=== PATIENT | male | born 1955 | race African-American/Black ===

== ENCOUNTER 2022-11-13 14:23 | Inpatient (IN) | payer OTHER ==
[2022-11-13 15:12] VITALS: BMI 22.4
[2022-11-13] MEDS ORDERED: POLYETHYLENE GLYCOL (HEALTHYLAX) 3350 17 GM PACKET PO PRN (17:31)
[2022-11-13] MEDS ORDERED: COLLOIDAL OATMEAL 1 BAR EACH TP PRN (17:31)
[2022-11-13] MEDS ORDERED: BENZONATATE 200 MG CAPSULE PO PRN (17:31)
[2022-11-13] MEDS ORDERED: MAGNESIUM HYDROX 2400MG/30ML ORAL SUSPENSION 30 ML CUP PO PRN (17:31)
[2022-11-13] MEDS ORDERED: BENZOCAINE/MENTHOL (CHLORASEPTIC ) LOZENGE MM PRN (17:31)
[2022-11-13] MEDS ORDERED: MAG HYDROX/AL HYDROX/SIMETH 30 ML UNIT-DOSE CUP PO PRN (17:31)
[2022-11-13] MEDS ORDERED: LOPERAMIDE HCL 2 MG CAPSULE PO PRN (17:31)
[2022-11-13] MEDS ORDERED: P-EPHED 60MG/TRIPROLIDI 2.5MG TABLET PO PRN (17:31)
[2022-11-13] MEDS ORDERED: IBUPROFEN 600 MG TABLET (FP) PO PRN (17:31)
[2022-11-13] MEDS ORDERED: AMMONIUM LACTATE 12% LOTION 225 GM BOTTLE TP PRN (17:31)
[2022-11-13] MEDS ORDERED: guaiFENesin 600 MG TABLET.ER (FP) PO PRN (17:31)
[2022-11-13] MEDS ORDERED: IBUPROFEN 400 MG TABLET (FP) PO PRN (17:31)
[2022-11-13] MEDS ORDERED: cloNIDine HCL 0.1 MG TABLET PO ONE (22:02)
[2022-11-13] MEDS: THIAMINE HCL 100 MG TABLET (FP) PO SCH (22:20)
[2022-11-13] MEDS: MELATONIN 5 MG TABLETS PO SCH (22:21)
[2022-11-14] MEDS ORDERED: TUBERCULIN PPD 5 TU/0.1ML VIAL ID ONE (08:28)
[2022-11-14] MEDS ORDERED: TUBERCULIN PPD 5 TU/0.1ML SYRINGE (IN PATIENT USE ONLY) ID ONE (10:00)
[2022-11-14] MEDS: PRENATAL VITAMINS W/ FOLIC ACID TABLET (FP) PO SCH (10:02)
[2022-11-14 10:58] LABS: MCH 28.2 pg (25.7-33.7); MCHC 32.4 g/dl (32.0-35.9); MEAN CELL VOLUME 87.2 fl (80-96); MEAN PLT VOLUME 8.3 fl (7.5-11.1); PLATELET COUNT 349 10^3/uL (134-434); RBC 4.24 M/mm3 (4.00-5.60); RDW 16.1 % (11.9-15.9); WHITE BLOOD COUNT 7.8 K/mm3 (4.0-10.0)
[2022-11-14 11:25] LABS: POTASSIUM 5.1 mmol/L (3.5-5.1)
[2022-11-14 11:28] LABS: EPI CELLS 15 /uL (0-25.1); HYALINE CASTS 1 /uL (0-3.1); URINE APPEARANCE CLEAR; URINE BACTERIA 32 /uL (0-1359); URINE BILIRUBIN NEGATIVE (NEGATIVE); URINE COLOR YELLOW; URINE GLUCOSE (UA) NEGATIVE (NEGATIVE); URINE KETONE NEGATIVE (NEGATIVE); URINE LEUK ESTERASE TRACE (NEGATIVE); URINE NITRITE NEGATIVE (NEGATIVE); URINE PROTEIN TRACE (NEGATIVE); URINE RBC 5 /uL (0-23.9); URINE UROBILINOGEN 0.2 mg/dL (0.2-1.0); URINE WBC 19 /uL (0-25.8)
[2022-11-14 11:32] LABS: ALBUMIN 2.9 g/dl (3.4-5.0); CALCIUM 7.9 mg/dL (8.5-10.1)
[2022-11-14 11:34] LABS: CREATININE 3.2 mg/dL (0.55-1.3)
[2022-11-14 11:36] LABS: BILIRUBIN,TOTAL 0.7 mg/dL (0.2-1)
[2022-11-14 11:44] LABS: SYPHILIS W/ RPR CONF NON-REACTIVE (NONREACTIVE)
[2022-11-14] MEDS: CALCIUM 250MG/VIT-D 125 UNITS 1 COMBO TABLET PO SCH ×2 (14:47→21:47)
[2022-11-14] MEDS: MELATONIN 5 MG TABLETS PO SCH (21:47)
[2022-11-14] MEDS: THIAMINE HCL 100 MG TABLET (FP) PO SCH (21:47)
[2022-11-15] MEDS: PRENATAL VITAMINS W/ FOLIC ACID TABLET (FP) PO SCH (09:43)
[2022-11-15] MEDS: CALCIUM 250MG/VIT-D 125 UNITS 1 COMBO TABLET PO SCH ×2 (09:43→21:32)
[2022-11-15 11:53] LABS: INR 0.98 (0.83-1.09); PROTHROMBIN TIME (PATIENT) 11.4 SEC (9.7-13.0)
[2022-11-15 12:02] LABS: POTASSIUM 4.9 mmol/L (3.5-5.1)
[2022-11-15 12:06] LABS: BASO % 0.4 % (0-2.0); EOS % 5.2 % (0-4.5); HEMATOCRIT 34.6 % (35.4-49); HEMOGLOBIN 11.4 GM/dL (11.7-16.9); LYMPH % 21.4 % (8-40); MCH 28.9 pg (25.7-33.7); MCHC 32.9 g/dl (32.0-35.9); MEAN PLT VOLUME 8.4 fl (7.5-11.1); MONO % 8.2 % (3.8-10.2); NEUT % 64.8 % (42.8-82.8); PLATELET COUNT 354 10^3/uL (134-434); RBC 3.93 M/mm3 (4.00-5.60); RDW 16.3 % (11.9-15.9); WHITE BLOOD COUNT 8.2 K/mm3 (4.0-10.0)
[2022-11-15 12:12] LABS: PHOSPHOROUS 2.8 mg/dL (2.5-4.9)
[2022-11-15 12:14] LABS: ALBUMIN 2.8 g/dl (3.4-5.0); BILIRUBIN,TOTAL 0.2 mg/dL (0.2-1); BLOOD UREA NITROGEN 30.6 mg/dL (7-18); TOT PROT 5.6 g/dl (6.4-8.2)
[2022-11-15 12:18] LABS: CREATININE 2.9 mg/dL (0.55-1.3)
[2022-11-15] MEDS: THIAMINE HCL 100 MG TABLET (FP) PO SCH (21:31)
[2022-11-15] MEDS: MELATONIN 5 MG TABLETS PO SCH (21:31)
[2022-11-16] MEDS: PRENATAL VITAMINS W/ FOLIC ACID TABLET (FP) PO SCH (09:16)
[2022-11-16] MEDS: CALCIUM 250MG/VIT-D 125 UNITS 1 COMBO TABLET PO SCH ×2 (09:16→22:14)
[2022-11-16] MEDS: THIAMINE HCL 100 MG TABLET (FP) PO SCH (22:14)
[2022-11-16] MEDS: MELATONIN 5 MG TABLETS PO SCH (22:14)
[2022-11-17] MEDS: ACETAMINOPHEN 325 MG TABLET (FP) PO PRN (06:22)
[2022-11-17] MEDS: CALCIUM 250MG/VIT-D 125 UNITS 1 COMBO TABLET PO SCH ×2 (09:45→21:10)
[2022-11-17] MEDS: PRENATAL VITAMINS W/ FOLIC ACID TABLET (FP) PO SCH (09:45)
[2022-11-17] MEDS: THIAMINE HCL 100 MG TABLET (FP) PO SCH (21:10)
[2022-11-17] MEDS: MELATONIN 5 MG TABLETS PO SCH (21:10)
[2022-11-18 06:45] VITALS: RESP 18
[2022-11-18] MEDS: CALCIUM 250MG/VIT-D 125 UNITS 1 COMBO TABLET PO SCH ×2 (10:26→21:40)
[2022-11-18] MEDS: PRENATAL VITAMINS W/ FOLIC ACID TABLET (FP) PO SCH (10:26)
[2022-11-18] MEDS: MELATONIN 5 MG TABLETS PO SCH (21:39)
[2022-11-18] MEDS: THIAMINE HCL 100 MG TABLET (FP) PO SCH (21:39)
[2022-11-19] MEDS: PRENATAL VITAMINS W/ FOLIC ACID TABLET (FP) PO SCH (09:26)
[2022-11-19] MEDS: CALCIUM 250MG/VIT-D 125 UNITS 1 COMBO TABLET PO SCH ×2 (09:26→21:48)
[2022-11-19] MEDS: THIAMINE HCL 100 MG TABLET (FP) PO SCH (21:47)
[2022-11-19] MEDS: MELATONIN 5 MG TABLETS PO SCH (21:48)
[2022-11-20] MEDS: ACETAMINOPHEN 325 MG TABLET (FP) PO PRN (06:16)
[2022-11-20] MEDS: CALCIUM 250MG/VIT-D 125 UNITS 1 COMBO TABLET PO SCH ×2 (10:14→21:39)
[2022-11-20] MEDS: PRENATAL VITAMINS W/ FOLIC ACID TABLET (FP) PO SCH (10:14)
[2022-11-20] MEDS: MELATONIN 5 MG TABLETS PO SCH (21:39)
[2022-11-20] MEDS: THIAMINE HCL 100 MG TABLET (FP) PO SCH (21:39)
[2022-11-21] MEDS: PRENATAL VITAMINS W/ FOLIC ACID TABLET (FP) PO SCH (09:52)
[2022-11-21] MEDS: CALCIUM 250MG/VIT-D 125 UNITS 1 COMBO TABLET PO SCH ×2 (09:53→22:12)
[2022-11-21 11:45] LABS: CHLORIDE 109 mmol/L (98-107); SODIUM 140 mmol/L (136-145)
[2022-11-21 11:49] LABS: CALCIUM 8.6 mg/dL (8.5-10.1)
[2022-11-21 11:50] LABS: ALBUMIN 2.9 g/dl (3.4-5.0); BLOOD UREA NITROGEN 38.9 mg/dL (7-18); CO2 28 mmol/L (21-32); GLUCOSE,RANDOM 115 mg/dL (74-106)
[2022-11-21 11:53] LABS: CREATININE 2.9 mg/dL (0.55-1.3); SGOT/AST 10 U/L (15-37); SGPT/ALT 14 U/L (13-61)
[2022-11-21 11:54] LABS: BILIRUBIN,TOTAL 0.2 mg/dL (0.2-1)
[2022-11-21 11:55] LABS: TOT PROT 5.8 g/dl (6.4-8.2)
[2022-11-21 11:56] LABS: ALK PHOS 68 U/L (45-117)
[2022-11-21 11:57] LABS: ANION GAP 3 MMOL/L (8-16); POTASSIUM 6.8 mmol/L (3.5-5.1)
[2022-11-21 12:53] VITALS: BP 160/100; PULSE 81; TEMP 98.9
[2022-11-21] MEDS: MELATONIN 5 MG TABLETS PO SCH ×2 (21:56→22:12)
[2022-11-21] MEDS: THIAMINE HCL 100 MG TABLET (FP) PO SCH ×2 (21:56→22:13)
== END 2022-11-21 23:28 | disposition short-term general hospital (02) | DRG 895 ==
LOC: YASAS 14:23 → Y3W 21:27
PROVIDERS: ADMIT Allergy & Immunology; ATTEND Psychiatry & Neurology Pain Medicine
PROC: HZ42ZZZ Group Counseling for Substance Abuse Treatment, Cognitive-Behavioral (ICD-10-PCS; principal; 2022-11-13)
DX: F11.10 Opioid abuse, uncomplicated (principal); N17.9 Acute kidney failure, unspecified; F14.10 Cocaine abuse, uncomplicated; F17.210 Nicotine dependence, cigarettes, uncomplicated; E87.5 Hyperkalemia; N18.9 Chronic kidney disease, unspecified; E83.51 Hypocalcemia; R63.4 Abnormal weight loss; Z68.22 Body mass index [BMI] 22.0-22.9, adult; Z28.310 Unvaccinated for COVID-19; Z28.9 Immunization not carried out for unspecified reason
CPT/HCPCS: 36415; 80053; 81003; 82652; 83735; 84100; 84443; 85025; 85027; 85610; 86780; 86803; 87635

== ENCOUNTER 2023-01-16 15:06 | Inpatient (IN) | payer OTHER ==
[2023-01-16 16:51] VITALS: BMI 17.9
[2023-01-16] MEDS ORDERED: LOPERAMIDE HCL 2 MG CAPSULE PO PRN (20:22)
[2023-01-16] MEDS ORDERED: MAG HYDROX/AL HYDROX/SIMETH 30 ML UNIT-DOSE CUP PO PRN (20:22)
[2023-01-16] MEDS ORDERED: ACETAMINOPHEN 325 MG TABLET (FP) PO PRN (20:22)
[2023-01-16] MEDS ORDERED: BENZONATATE 200 MG CAPSULE PO PRN (20:22)
[2023-01-16] MEDS ORDERED: BENZOCAINE/MENTHOL (CHLORASEPTIC ) LOZENGE MM PRN (20:22)
[2023-01-16] MEDS ORDERED: P-EPHED 60MG/TRIPROLIDI 2.5MG TABLET PO PRN (20:22)
[2023-01-16] MEDS ORDERED: COLLOIDAL OATMEAL 1 BAR EACH TP PRN (20:22)
[2023-01-16] MEDS ORDERED: MAGNESIUM HYDROX 2400MG/30ML ORAL SUSPENSION 30 ML CUP PO PRN (20:22)
[2023-01-16] MEDS ORDERED: POLYETHYLENE GLYCOL (HEALTHYLAX) 3350 17 GM PACKET PO PRN (20:22)
[2023-01-16] MEDS ORDERED: guaiFENesin 600 MG TABLET.ER (FP) PO PRN (20:22)
[2023-01-16] MEDS: MELATONIN 5 MG TABLETS PO SCH (21:13)
[2023-01-16] MEDS: THIAMINE HCL 100 MG TABLET (FP) PO SCH (21:13)
[2023-01-16] MEDS ORDERED: METOPROLOL TARTRATE 25 MG TABLET (FP) PO SCH (22:00)
[2023-01-16] MEDS: SODIUM BICARBONATE 650 MG TABLET PO SCH (22:21)
[2023-01-17] MEDS: SODIUM BICARBONATE 650 MG TABLET PO SCH ×3 (06:11→21:11)
[2023-01-17 08:53] LABS: POTASSIUM 5.3 mmol/L (3.5-5.1)
[2023-01-17 08:55] LABS: HEMATOCRIT 36.1 % (35.4-49); HEMOGLOBIN 11.2 GM/dL (11.7-16.9); MCH 28.4 pg (25.7-33.7); MCHC 31.1 g/dl (32.0-35.9); MEAN CELL VOLUME 91.5 fl (80-96); MEAN PLT VOLUME 8.7 fl (7.5-11.1); PLATELET COUNT 299 10^3/uL (134-434); RBC 3.94 M/mm3 (4.00-5.60); RDW 15.6 % (11.9-15.9); WHITE BLOOD COUNT 5.6 K/mm3 (4.0-10.0)
[2023-01-17 08:58] LABS: CALCIUM 8.4 mg/dL (8.5-10.1)
[2023-01-17 08:59] LABS: ALBUMIN 2.7 g/dl (3.4-5.0)
[2023-01-17 09:02] LABS: CREATININE 3.2 mg/dL (0.55-1.3)
[2023-01-17 09:04] LABS: BILIRUBIN,TOTAL 0.2 mg/dL (0.2-1); TOT PROT 5.3 g/dl (6.4-8.2)
[2023-01-17] MEDS ORDERED: FLU VACCINE (FLULAVAL) PF 60 MCG/0.5 ML SYRINGE 2023-2024 IM ONE (09:15)
[2023-01-17] MEDS ORDERED: METOPROLOL TARTRATE 50 MG TABLET (FP) PO SCH (10:00)
[2023-01-17] MEDS ORDERED: SODIUM ZIRCONIUM CYCLOSILICATE (LOKELMA) 5 GM PACKET PO SCH (10:00)
[2023-01-17] MEDS ORDERED: SODIUM ZIRCONIUM CYCLOSILICATE (LOKELMA) 10 GM PACKET PO SCH (10:00)
[2023-01-17] MEDS: PRENATAL VITAMINS W/ FOLIC ACID TABLET (FP) PO SCH (10:33)
[2023-01-17] MEDS: METOPROLOL TARTRATE 50 MG TABLET (FP) PO SCH ×2 (10:35→21:10)
[2023-01-17] MEDS: THIAMINE HCL 100 MG TABLET (FP) PO SCH (21:10)
[2023-01-17] MEDS: MELATONIN 5 MG TABLETS PO SCH (21:10)
[2023-01-18] MEDS: SODIUM BICARBONATE 650 MG TABLET PO SCH ×3 (06:49→21:32)
[2023-01-18 09:15] LABS: POTASSIUM 5.3 mmol/L (3.5-5.1)
[2023-01-18 09:35] LABS: ALBUMIN 2.8 g/dl (3.4-5.0); CALCIUM 8.3 mg/dL (8.5-10.1)
[2023-01-18 09:36] LABS: BLOOD UREA NITROGEN 34.8 mg/dL (7-18)
[2023-01-18 09:38] LABS: PHOSPHOROUS 3.3 mg/dL (2.5-4.9)
[2023-01-18 09:41] LABS: BILIRUBIN,TOTAL 0.4 mg/dL (0.2-1); TOT PROT 5.4 g/dl (6.4-8.2)
[2023-01-18] MEDS: PRENATAL VITAMINS W/ FOLIC ACID TABLET (FP) PO SCH (10:25)
[2023-01-18] MEDS: METOPROLOL TARTRATE 50 MG TABLET (FP) PO SCH ×2 (10:25→21:32)
[2023-01-18] MEDS ORDERED: SODIUM ZIRCONIUM CYCLOSILICATE (LOKELMA) 5 GM PACKET PO SCH (14:00)
[2023-01-18] MEDS: SODIUM ZIRCONIUM CYCLOSILICATE (LOKELMA) 5 GM PACKET PO SCH (14:00)
[2023-01-18 15:38] LABS: PH,URINE 7.5 (5.0-8.0); URINE APPEARANCE CLEAR; URINE BILIRUBIN NEGATIVE (NEGATIVE); URINE COLOR YELLOW; URINE GLUCOSE (UA) NEGATIVE (NEGATIVE); URINE KETONE NEGATIVE (NEGATIVE); URINE LEUK ESTERASE NEGATIVE (NEGATIVE); URINE NITRITE NEGATIVE (NEGATIVE); URINE PROTEIN TRACE (NEGATIVE); URINE UROBILINOGEN 0.2 mg/dL (0.2-1.0)
[2023-01-18] MEDS: THIAMINE HCL 100 MG TABLET (FP) PO SCH (21:31)
[2023-01-18] MEDS: MELATONIN 5 MG TABLETS PO SCH (21:31)
[2023-01-19] MEDS: SODIUM BICARBONATE 650 MG TABLET PO SCH ×3 (06:30→21:29)
[2023-01-19] MEDS: PRENATAL VITAMINS W/ FOLIC ACID TABLET (FP) PO SCH (09:32)
[2023-01-19] MEDS: METOPROLOL TARTRATE 50 MG TABLET (FP) PO SCH ×2 (09:33→21:30)
[2023-01-19] MEDS: SODIUM ZIRCONIUM CYCLOSILICATE (LOKELMA) 5 GM PACKET PO SCH (13:59)
[2023-01-19] MEDS: THIAMINE HCL 100 MG TABLET (FP) PO SCH (21:30)
[2023-01-19] MEDS: MELATONIN 5 MG TABLETS PO SCH (21:30)
[2023-01-20] MEDS: SODIUM BICARBONATE 650 MG TABLET PO SCH ×3 (06:28→21:05)
[2023-01-20] MEDS: METOPROLOL TARTRATE 50 MG TABLET (FP) PO SCH ×2 (10:10→21:05)
[2023-01-20] MEDS: PRENATAL VITAMINS W/ FOLIC ACID TABLET (FP) PO SCH (10:10)
[2023-01-20] MEDS: SODIUM ZIRCONIUM CYCLOSILICATE (LOKELMA) 10 GM PACKET PO SCH ×2 (11:08→21:06)
[2023-01-20] MEDS: SODIUM ZIRCONIUM CYCLOSILICATE (LOKELMA) 5 GM PACKET PO SCH (13:52)
[2023-01-20] MEDS: MELATONIN 5 MG TABLETS PO SCH (21:04)
[2023-01-20] MEDS: THIAMINE HCL 100 MG TABLET (FP) PO SCH (21:04)
[2023-01-21] MEDS: SODIUM BICARBONATE 650 MG TABLET PO SCH ×3 (06:40→21:15)
[2023-01-21] MEDS: SODIUM ZIRCONIUM CYCLOSILICATE (LOKELMA) 10 GM PACKET PO SCH ×2 (09:59→21:16)
[2023-01-21] MEDS: PRENATAL VITAMINS W/ FOLIC ACID TABLET (FP) PO SCH (09:59)
[2023-01-21] MEDS: METOPROLOL TARTRATE 50 MG TABLET (FP) PO SCH ×2 (09:59→21:15)
[2023-01-21] MEDS: THIAMINE HCL 100 MG TABLET (FP) PO SCH (21:15)
[2023-01-21] MEDS: MELATONIN 5 MG TABLETS PO SCH (21:15)
[2023-01-22] MEDS: SODIUM BICARBONATE 650 MG TABLET PO SCH ×3 (06:32→21:14)
[2023-01-22] MEDS: PRENATAL VITAMINS W/ FOLIC ACID TABLET (FP) PO SCH (10:19)
[2023-01-22] MEDS: METOPROLOL TARTRATE 50 MG TABLET (FP) PO SCH ×2 (10:19→21:14)
[2023-01-22] MEDS: SODIUM ZIRCONIUM CYCLOSILICATE (LOKELMA) 10 GM PACKET PO SCH ×2 (10:19→21:15)
[2023-01-22] MEDS: MELATONIN 5 MG TABLETS PO SCH (21:14)
[2023-01-22] MEDS: THIAMINE HCL 100 MG TABLET (FP) PO SCH (21:14)
[2023-01-23] MEDS: SODIUM BICARBONATE 650 MG TABLET PO SCH ×3 (06:24→21:08)
[2023-01-23] MEDS: PRENATAL VITAMINS W/ FOLIC ACID TABLET (FP) PO SCH (10:01)
[2023-01-23] MEDS: METOPROLOL TARTRATE 50 MG TABLET (FP) PO SCH ×2 (10:01→21:07)
[2023-01-23] MEDS: SODIUM ZIRCONIUM CYCLOSILICATE (LOKELMA) 10 GM PACKET PO SCH ×2 (10:02→21:08)
[2023-01-23] MEDS: THIAMINE HCL 100 MG TABLET (FP) PO SCH (21:08)
[2023-01-23] MEDS: MELATONIN 5 MG TABLETS PO SCH (21:08)
[2023-01-24] MEDS: SODIUM BICARBONATE 650 MG TABLET PO SCH ×3 (06:36→21:21)
[2023-01-24] MEDS: SODIUM ZIRCONIUM CYCLOSILICATE (LOKELMA) 10 GM PACKET PO SCH ×2 (09:48→21:21)
[2023-01-24] MEDS: PRENATAL VITAMINS W/ FOLIC ACID TABLET (FP) PO SCH (09:48)
[2023-01-24] MEDS: METOPROLOL TARTRATE 50 MG TABLET (FP) PO SCH ×2 (09:48→21:20)
[2023-01-24] MEDS: THIAMINE HCL 100 MG TABLET (FP) PO SCH (21:20)
[2023-01-24] MEDS: MELATONIN 5 MG TABLETS PO SCH (21:20)
[2023-01-25] MEDS: SODIUM BICARBONATE 650 MG TABLET PO SCH ×3 (05:57→21:18)
[2023-01-25] MEDS: PRENATAL VITAMINS W/ FOLIC ACID TABLET (FP) PO SCH (10:20)
[2023-01-25] MEDS: METOPROLOL TARTRATE 50 MG TABLET (FP) PO SCH ×2 (10:20→21:18)
[2023-01-25] MEDS: SODIUM ZIRCONIUM CYCLOSILICATE (LOKELMA) 10 GM PACKET PO SCH ×2 (10:20→21:18)
[2023-01-25] MEDS: THIAMINE HCL 100 MG TABLET (FP) PO SCH (21:18)
[2023-01-25] MEDS: MELATONIN 5 MG TABLETS PO SCH (21:18)
[2023-01-26] MEDS: SODIUM BICARBONATE 650 MG TABLET PO SCH ×3 (05:57→21:11)
[2023-01-26] MEDS: METOPROLOL TARTRATE 50 MG TABLET (FP) PO SCH ×2 (10:07→21:12)
[2023-01-26] MEDS: SODIUM ZIRCONIUM CYCLOSILICATE (LOKELMA) 10 GM PACKET PO SCH ×2 (10:07→21:11)
[2023-01-26] MEDS: PRENATAL VITAMINS W/ FOLIC ACID TABLET (FP) PO SCH (10:07)
[2023-01-26] MEDS: MELATONIN 5 MG TABLETS PO SCH (21:11)
[2023-01-26] MEDS: THIAMINE HCL 100 MG TABLET (FP) PO SCH (21:11)
[2023-01-27] MEDS: SODIUM BICARBONATE 650 MG TABLET PO SCH ×3 (06:54→21:37)
[2023-01-27] MEDS: PRENATAL VITAMINS W/ FOLIC ACID TABLET (FP) PO SCH (09:50)
[2023-01-27] MEDS: METOPROLOL TARTRATE 50 MG TABLET (FP) PO SCH ×2 (09:50→21:37)
[2023-01-27] MEDS: SODIUM ZIRCONIUM CYCLOSILICATE (LOKELMA) 10 GM PACKET PO SCH ×2 (09:51→21:37)
[2023-01-27] MEDS: THIAMINE HCL 100 MG TABLET (FP) PO SCH (21:37)
[2023-01-27] MEDS: MELATONIN 5 MG TABLETS PO SCH (21:37)
[2023-01-28] MEDS: SODIUM BICARBONATE 650 MG TABLET PO SCH ×3 (06:10→21:16)
[2023-01-28] MEDS: METOPROLOL TARTRATE 50 MG TABLET (FP) PO SCH ×2 (10:08→21:16)
[2023-01-28] MEDS: PRENATAL VITAMINS W/ FOLIC ACID TABLET (FP) PO SCH (10:08)
[2023-01-28] MEDS: SODIUM ZIRCONIUM CYCLOSILICATE (LOKELMA) 10 GM PACKET PO SCH ×2 (10:08→21:17)
[2023-01-28] MEDS: THIAMINE HCL 100 MG TABLET (FP) PO SCH (21:16)
[2023-01-28] MEDS: MELATONIN 5 MG TABLETS PO SCH (21:16)
[2023-01-29] MEDS: SODIUM BICARBONATE 650 MG TABLET PO SCH ×3 (06:21→21:16)
[2023-01-29] MEDS: PRENATAL VITAMINS W/ FOLIC ACID TABLET (FP) PO SCH (09:50)
[2023-01-29] MEDS: SODIUM ZIRCONIUM CYCLOSILICATE (LOKELMA) 10 GM PACKET PO SCH ×2 (09:50→21:16)
[2023-01-29] MEDS: METOPROLOL TARTRATE 50 MG TABLET (FP) PO SCH ×2 (09:50→21:16)
[2023-01-29] MEDS: amLODIPine BESYLATE 2.5 MG TABLET (FP) PO SCH (14:29)
[2023-01-29] MEDS: THIAMINE HCL 100 MG TABLET (FP) PO SCH (21:17)
[2023-01-29] MEDS: MELATONIN 5 MG TABLETS PO SCH (21:17)
[2023-01-30] MEDS: SODIUM BICARBONATE 650 MG TABLET PO SCH ×3 (06:17→21:11)
[2023-01-30] MEDS: PRENATAL VITAMINS W/ FOLIC ACID TABLET (FP) PO SCH (10:13)
[2023-01-30] MEDS: METOPROLOL TARTRATE 50 MG TABLET (FP) PO SCH ×2 (10:13→21:11)
[2023-01-30] MEDS: amLODIPine BESYLATE 2.5 MG TABLET (FP) PO SCH (10:14)
[2023-01-30] MEDS: SODIUM ZIRCONIUM CYCLOSILICATE (LOKELMA) 10 GM PACKET PO SCH ×2 (10:15→21:11)
[2023-01-30] MEDS ORDERED: amLODIPine BESYLATE 2.5 MG TABLET (FP) PO ONE (12:30)
[2023-01-30 16:34] LABS: POTASSIUM 4.6 mmol/L (3.5-5.1)
[2023-01-30 16:38] LABS: BASO % 0.5 % (0-2.0); HEMATOCRIT 38.1 % (35.4-49); HEMOGLOBIN 12.5 GM/dL (11.7-16.9); LYMPH % 24.1 % (8-40); MCH 29.2 pg (25.7-33.7); MCHC 32.8 g/dl (32.0-35.9); MEAN PLT VOLUME 9.6 fl (7.5-11.1); MONO % 9.6 % (3.8-10.2); NEUT % 61.8 % (42.8-82.8); PLATELET COUNT 270 10^3/uL (134-434); RBC 4.28 M/mm3 (4.00-5.60); RDW 15.7 % (11.9-15.9); WHITE BLOOD COUNT 7.3 K/mm3 (4.0-10.0)
[2023-01-30 16:39] LABS: ALBUMIN 3.3 g/dl (3.4-5.0); CALCIUM 8.6 mg/dL (8.5-10.1)
[2023-01-30 16:40] LABS: BLOOD UREA NITROGEN 35.4 mg/dL (7-18)
[2023-01-30 16:42] LABS: PHOSPHOROUS 3.7 mg/dL (2.5-4.9)
[2023-01-30 16:43] LABS: CREATININE 2.9 mg/dL (0.55-1.3); TOT PROT 6.6 g/dl (6.4-8.2)
[2023-01-30 16:44] LABS: BILIRUBIN,TOTAL 0.3 mg/dL (0.2-1)
[2023-01-30] MEDS: THIAMINE HCL 100 MG TABLET (FP) PO SCH (21:11)
[2023-01-30] MEDS: MELATONIN 5 MG TABLETS PO SCH (21:12)
[2023-01-31] MEDS: SODIUM BICARBONATE 650 MG TABLET PO SCH ×3 (06:24→21:16)
[2023-01-31] MEDS: amLODIPine BESYLATE 5 MG TABLET (FP) PO SCH (09:50)
[2023-01-31] MEDS: PRENATAL VITAMINS W/ FOLIC ACID TABLET (FP) PO SCH (09:51)
[2023-01-31] MEDS: SODIUM ZIRCONIUM CYCLOSILICATE (LOKELMA) 10 GM PACKET PO SCH ×2 (09:51→21:17)
[2023-01-31] MEDS: METOPROLOL TARTRATE 50 MG TABLET (FP) PO SCH ×2 (09:51→21:16)
[2023-01-31] MEDS: MELATONIN 5 MG TABLETS PO SCH (21:16)
[2023-01-31] MEDS: THIAMINE HCL 100 MG TABLET (FP) PO SCH (21:16)
[2023-02-01] MEDS: SODIUM BICARBONATE 650 MG TABLET PO SCH ×3 (06:43→21:21)
[2023-02-01] MEDS: SODIUM ZIRCONIUM CYCLOSILICATE (LOKELMA) 10 GM PACKET PO SCH ×2 (10:09→21:20)
[2023-02-01] MEDS: PRENATAL VITAMINS W/ FOLIC ACID TABLET (FP) PO SCH (10:09)
[2023-02-01] MEDS: METOPROLOL TARTRATE 50 MG TABLET (FP) PO SCH ×2 (10:10→21:21)
[2023-02-01] MEDS: amLODIPine BESYLATE 5 MG TABLET (FP) PO SCH (10:10)
[2023-02-01] MEDS: THIAMINE HCL 100 MG TABLET (FP) PO SCH (21:20)
[2023-02-01] MEDS: MELATONIN 5 MG TABLETS PO SCH (21:20)
[2023-02-02] MEDS: SODIUM BICARBONATE 650 MG TABLET PO SCH ×3 (06:20→21:28)
[2023-02-02] MEDS: SODIUM ZIRCONIUM CYCLOSILICATE (LOKELMA) 10 GM PACKET PO SCH ×2 (09:49→21:28)
[2023-02-02] MEDS: METOPROLOL TARTRATE 50 MG TABLET (FP) PO SCH ×2 (09:51→21:28)
[2023-02-02] MEDS: PRENATAL VITAMINS W/ FOLIC ACID TABLET (FP) PO SCH (09:51)
[2023-02-02] MEDS: amLODIPine BESYLATE 5 MG TABLET (FP) PO SCH (09:51)
[2023-02-02] MEDS: MELATONIN 5 MG TABLETS PO SCH (21:28)
[2023-02-02] MEDS: THIAMINE HCL 100 MG TABLET (FP) PO SCH (21:28)
[2023-02-03] MEDS: SODIUM BICARBONATE 650 MG TABLET PO SCH ×3 (06:07→21:09)
[2023-02-03] MEDS: SODIUM ZIRCONIUM CYCLOSILICATE (LOKELMA) 10 GM PACKET PO SCH ×2 (10:12→21:09)
[2023-02-03] MEDS: PRENATAL VITAMINS W/ FOLIC ACID TABLET (FP) PO SCH (10:12)
[2023-02-03] MEDS: METOPROLOL TARTRATE 50 MG TABLET (FP) PO SCH ×2 (10:12→21:09)
[2023-02-03] MEDS: amLODIPine BESYLATE 5 MG TABLET (FP) PO SCH (10:12)
[2023-02-03] MEDS: THIAMINE HCL 100 MG TABLET (FP) PO SCH (21:09)
[2023-02-03] MEDS: MELATONIN 5 MG TABLETS PO SCH (21:09)
[2023-02-04] MEDS: SODIUM BICARBONATE 650 MG TABLET PO SCH ×3 (06:20→21:12)
[2023-02-04 07:01] VITALS: RESP 18
[2023-02-04] MEDS: METOPROLOL TARTRATE 50 MG TABLET (FP) PO SCH ×2 (10:02→21:12)
[2023-02-04] MEDS: PRENATAL VITAMINS W/ FOLIC ACID TABLET (FP) PO SCH (10:02)
[2023-02-04] MEDS: amLODIPine BESYLATE 5 MG TABLET (FP) PO SCH (10:02)
[2023-02-04] MEDS: SODIUM ZIRCONIUM CYCLOSILICATE (LOKELMA) 10 GM PACKET PO SCH ×2 (10:03→21:12)
[2023-02-04] MEDS: MELATONIN 5 MG TABLETS PO SCH (21:12)
[2023-02-04] MEDS: THIAMINE HCL 100 MG TABLET (FP) PO SCH (21:12)
[2023-02-05] MEDS: SODIUM BICARBONATE 650 MG TABLET PO SCH ×3 (06:12→21:03)
[2023-02-05] MEDS: METOPROLOL TARTRATE 50 MG TABLET (FP) PO SCH ×2 (09:33→21:03)
[2023-02-05] MEDS: SODIUM ZIRCONIUM CYCLOSILICATE (LOKELMA) 10 GM PACKET PO SCH ×2 (09:33→21:03)
[2023-02-05] MEDS: PRENATAL VITAMINS W/ FOLIC ACID TABLET (FP) PO SCH (09:33)
[2023-02-05] MEDS: amLODIPine BESYLATE 5 MG TABLET (FP) PO SCH (09:33)
[2023-02-05] MEDS: THIAMINE HCL 100 MG TABLET (FP) PO SCH (21:03)
[2023-02-05] MEDS: MELATONIN 5 MG TABLETS PO SCH (21:03)
[2023-02-06] MEDS: SODIUM BICARBONATE 650 MG TABLET PO SCH ×3 (06:12→21:12)
[2023-02-06] MEDS: amLODIPine BESYLATE 5 MG TABLET (FP) PO SCH (09:59)
[2023-02-06] MEDS: METOPROLOL TARTRATE 50 MG TABLET (FP) PO SCH ×2 (09:59→21:12)
[2023-02-06] MEDS: SODIUM ZIRCONIUM CYCLOSILICATE (LOKELMA) 10 GM PACKET PO SCH ×2 (09:59→21:12)
[2023-02-06] MEDS: PRENATAL VITAMINS W/ FOLIC ACID TABLET (FP) PO SCH (10:00)
[2023-02-06] MEDS: THIAMINE HCL 100 MG TABLET (FP) PO SCH (21:12)
[2023-02-06] MEDS: MELATONIN 5 MG TABLETS PO SCH (21:12)
[2023-02-07] MEDS: SODIUM BICARBONATE 650 MG TABLET PO SCH (06:44)
[2023-02-07 07:13] VITALS: BP 137/80; PULSE 71; TEMP 97.7
[2023-02-07] MEDS: PRENATAL VITAMINS W/ FOLIC ACID TABLET (FP) PO SCH (09:52)
[2023-02-07] MEDS: SODIUM ZIRCONIUM CYCLOSILICATE (LOKELMA) 10 GM PACKET PO SCH (09:52)
[2023-02-07] MEDS: amLODIPine BESYLATE 5 MG TABLET (FP) PO SCH (09:52)
[2023-02-07] MEDS: METOPROLOL TARTRATE 50 MG TABLET (FP) PO SCH (09:52)
== END 2023-02-07 10:02 | disposition home or self-care (01) | DRG 895 ==
LOC: YASAS 15:06 → Y3W 20:02
PROVIDERS: ADMIT Allergy & Immunology; ATTEND Psychiatry & Neurology Pain Medicine
PROC: HZ42ZZZ Group Counseling for Substance Abuse Treatment, Cognitive-Behavioral (ICD-10-PCS; principal; 2023-01-16)
DX: F11.20 Opioid dependence, uncomplicated (principal); F14.10 Cocaine abuse, uncomplicated; F17.210 Nicotine dependence, cigarettes, uncomplicated; E87.5 Hyperkalemia; I12.9 Hypertensive chronic kidney disease with stage 1 through stage 4 chronic kidney disease, or unspecified chronic kidney disease; N18.9 Chronic kidney disease, unspecified
CPT/HCPCS: 36415; 80053; 81003; 82140; 82652; 84100; 84132; 85025; 85027; 86780; 87635; 87811; 93005; 93010

== ENCOUNTER 2024-02-03 13:28 | Inpatient (IN) | payer OTHER ==
[2024-02-03 14:48] VITALS: BMI 14.9
[2024-02-03] MEDS ORDERED: BENZOCAINE/MENTHOL (CHLORASEPTIC ) LOZENGE MM PRN (15:06)
[2024-02-03] MEDS ORDERED: MAGNESIUM HYDROX 2400MG/30ML ORAL SUSPENSION 30 ML CUP PO PRN (15:06)
[2024-02-03] MEDS ORDERED: POLYETHYLENE GLYCOL (HEALTHYLAX) 3350 17 GM PACKET PO PRN (15:06)
[2024-02-03] MEDS ORDERED: BENZONATATE 200 MG CAPSULE PO PRN (15:06)
[2024-02-03] MEDS ORDERED: IBUPROFEN 600 MG TABLET (FP) PO PRN (15:06)
[2024-02-03] MEDS ORDERED: guaiFENesin 600 MG TABLET.ER (FP) PO PRN (15:06)
[2024-02-03] MEDS ORDERED: MAG HYDROX/AL HYDROX/SIMETH 30 ML UNIT-DOSE CUP PO PRN (15:06)
[2024-02-03] MEDS ORDERED: IBUPROFEN 400 MG TABLET (FP) PO PRN (15:06)
[2024-02-03] MEDS ORDERED: LOPERAMIDE HCL 2 MG CAPSULE PO PRN (15:06)
[2024-02-03] MEDS ORDERED: NALOXONE (NARCAN) HCL 4 MG/0.1 ML SPRAY NS PRN (15:06)
[2024-02-03 16:59] LABS: HEMATOCRIT 28.4 % (35.4-49); HEMOGLOBIN 8.6 GM/dL (11.7-16.9); MCH 25.4 pg (25.7-33.7); MCHC 30.4 g/dl (32.0-35.9); MEAN CELL VOLUME 83.6 fl (80-96); MEAN PLT VOLUME 7.5 fl (7.5-11.1); PLATELET COUNT 620 10^3/uL (134-434); RBC 3.39 M/mm3 (4.00-5.60); RDW 19.2 % (11.9-15.9); WHITE BLOOD COUNT 11.3 K/mm3 (4.0-10.0)
[2024-02-03 17:04] LABS: POTASSIUM 5.4 mmol/L (3.5-5.1)
[2024-02-03 17:11] LABS: ALBUMIN 2.4 g/dl (3.4-5.0); BLOOD UREA NITROGEN 66.9 mg/dL (7-18)
[2024-02-03 17:14] LABS: CREATININE 5.6 mg/dL (0.55-1.3)
[2024-02-03 17:16] LABS: BILIRUBIN,TOTAL 0.2 mg/dL (0.2-1); TOT PROT 6.5 g/dl (6.4-8.2)
[2024-02-03] MEDS: SODIUM ZIRCONIUM CYCLOSILICATE (LOKELMA) 5 GM PACKET PO SCH (22:51)
[2024-02-03] MEDS: MELATONIN 5 MG TABLETS PO SCH (22:54)
[2024-02-03] MEDS: THIAMINE 100 MG TABLET PO SCH (22:55)
[2024-02-03] MEDS: DOCUSATE SODIUM 100 MG CAPSULE (FP) PO SCH (22:55)
[2024-02-04] MEDS: SODIUM POLYSTYRENE SULFONATE 15 GM/60 ML BOTTLE PO ONE (00:31)
[2024-02-04] MEDS: PRENATAL VITAMINS W/ FOLIC ACID TABLET (FP) PO SCH (09:46)
[2024-02-04] MEDS: ASPIRIN COATED 81 MG TABLET.EC PO SCH (09:46)
[2024-02-04 10:15] LABS: POTASSIUM 5.1 mmol/L (3.5-5.1)
[2024-02-04 10:16] LABS: CALCIUM 7.9 mg/dL (8.5-10.1)
[2024-02-04 10:19] LABS: ALBUMIN 2.2 g/dl (3.4-5.0); BLOOD UREA NITROGEN 62.3 mg/dL (7-18)
[2024-02-04 10:22] LABS: CREATININE 5.3 mg/dL (0.55-1.3); PHOSPHOROUS 2.7 mg/dL (2.5-4.9)
[2024-02-04] MEDS ORDERED: TUBERCULIN PPD 5 TU/0.1ML VIAL ID ONE (11:24)
[2024-02-04] MEDS: FERROUS SO4 325 MG TABLET (FP) PO SCH (13:30)
[2024-02-05 11:26] LABS: HEMATOCRIT 24.2 % (35.4-49); HEMOGLOBIN 7.4 GM/dL (11.7-16.9); MCH 25.8 pg (25.7-33.7); MCHC 30.6 g/dl (32.0-35.9); MEAN CELL VOLUME 84.3 fl (80-96); MEAN PLT VOLUME 7.6 fl (7.5-11.1); PLATELET COUNT 470 10^3/uL (134-434); RBC 2.87 M/mm3 (4.00-5.60); RDW 19.3 % (11.9-15.9); WHITE BLOOD COUNT 10.2 K/mm3 (4.0-10.0)
[2024-02-05 12:09] LABS: POTASSIUM 4.7 mmol/L (3.5-5.1)
[2024-02-05 12:14] LABS: ALBUMIN 1.9 g/dl (3.4-5.0)
[2024-02-05 12:15] LABS: CALCIUM 7.9 mg/dL (8.5-10.1)
[2024-02-05 12:18] LABS: CREATININE 4.7 mg/dL (0.55-1.3)
[2024-02-05 12:19] LABS: BILIRUBIN,TOTAL 0.2 mg/dL (0.2-1)
[2024-02-05 12:20] LABS: TOT PROT 5.3 g/dl (6.4-8.2)
[2024-02-05] MEDS: SODIUM ZIRCONIUM CYCLOSILICATE (LOKELMA) 10 GM PACKET PO SCH (12:30)
[2024-02-07] MEDS: METOPROLOL TARTRATE 25 MG TABLET (FP) PO SCH (11:50)
[2024-02-07 13:09] LABS: EPI CELLS >36 /uL (0-25.1); HYALINE CASTS 189 /uL (0-3.1); URINE APPEARANCE CLEAR; URINE BACTERIA 2454 /uL (0-1359); URINE BILIRUBIN NEGATIVE (NEGATIVE); URINE COLOR YELLOW; URINE GLUCOSE (UA) NEGATIVE (NEGATIVE); URINE KETONE NEGATIVE (NEGATIVE); URINE LEUK ESTERASE 2+ (NEGATIVE); URINE NITRITE NEGATIVE (NEGATIVE); URINE PROTEIN 1+ (NEGATIVE); URINE RBC 60 /uL (0-23.9); URINE UROBILINOGEN 0.2 mg/dL (0.2-1.0); URINE WBC 80 /uL (0-25.8)
[2024-02-07] MEDS: SODIUM BICARBONATE 650 MG TABLET PO SCH (13:54)
[2024-02-08] MEDS: ACETAMINOPHEN 325 MG TABLET (FP) PO PRN (10:19)
[2024-02-09] MEDS: NALOXONE (NYS OPIOID OVERDOSE PROGRAM) 4 MG/0.1 ML SPRAY NS SCH (09:37)
[2024-02-09 11:08] LABS: HEMATOCRIT 23.5 % (35.4-49); HEMOGLOBIN 7.2 GM/dL (11.7-16.9); MCH 25.7 pg (25.7-33.7); MCHC 30.6 g/dl (32.0-35.9); MEAN CELL VOLUME 83.7 fl (80-96); MEAN PLT VOLUME 7.9 fl (7.5-11.1); PLATELET COUNT 453 10^3/uL (134-434); RBC 2.81 M/mm3 (4.00-5.60); RDW 20.4 % (11.9-15.9); WHITE BLOOD COUNT 10.8 K/mm3 (4.0-10.0)
[2024-02-09 11:12] LABS: POTASSIUM 4.6 mmol/L (3.5-5.1)
[2024-02-09 11:20] LABS: ALBUMIN 2.1 g/dl (3.4-5.0)
[2024-02-09 11:23] LABS: CREATININE 4.5 mg/dL (0.55-1.3)
[2024-02-09 11:24] LABS: BILIRUBIN,TOTAL 0.1 mg/dL (0.2-1); TOT PROT 6.1 g/dl (6.4-8.2)
[2024-02-09 14:58] VITALS: BP 140/96; PULSE 99; RESP 16; TEMP 98
== END 2024-02-09 13:20 | disposition short-term general hospital (02) | DRG 895 ==
LOC: YASAS 13:28 → Y5N 17:29
PROVIDERS: ADMIT Psychiatry & Neurology Pain Medicine; ATTEND Psychiatry & Neurology Pain Medicine
PROC: HZ42ZZZ Group Counseling for Substance Abuse Treatment, Cognitive-Behavioral (ICD-10-PCS; principal; 2024-02-03)
DX: F14.20 Cocaine dependence, uncomplicated (principal); N18.6 End stage renal disease; N39.0 Urinary tract infection, site not specified; D63.1 Anemia in chronic kidney disease; I10 Essential (primary) hypertension; Z87.891 Personal history of nicotine dependence; Z85.51 Personal history of malignant neoplasm of bladder
CPT/HCPCS: 36415; 71046-TC-FY; 80053; 80069; 80305; 80307; 81003; 84132; 85027; 86780; 87811; 93005; 93010

== ENCOUNTER 2024-02-09 13:46 | Observation (INO) | payer OTHER ==
[2024-02-09 15:31] LABS: BASO % 0.9 % (0-2.0); EOS % 2.3 % (0-4.5); HEMATOCRIT 22.1 % (35.4-49); LYMPH % 6.2 % (8-40); MCH 25.7 pg (25.7-33.7); MCHC 31.6 g/dl (32.0-35.9); MEAN CELL VOLUME 81.4 fl (80-96); MEAN PLT VOLUME 7.7 fl (7.5-11.1); MONO % 7.8 % (3.8-10.2); NEUT % 82.8 % (42.8-82.8); PLATELET COUNT 445 10^3/uL (134-434); RBC 2.71 M/mm3 (4.00-5.60); RDW 19.2 % (11.9-15.9); WHITE BLOOD COUNT 9.8 K/mm3 (4.0-10.0)
[2024-02-09 15:39] LABS: INR 1.07 (0.83-1.09); PROTHROMBIN TIME (PATIENT) 12.1 SEC (9.7-13.0)
[2024-02-09 15:41] LABS: ACTIVATED PTT 30.5 SECONDS (25.2-36.5)
[2024-02-09 15:49] LABS: PH,URINE 7.5 (5.0-8.0); URINE APPEARANCE CLEAR; URINE BILIRUBIN NEGATIVE (NEGATIVE); URINE COLOR YELLOW; URINE GLUCOSE (UA) NEGATIVE (NEGATIVE); URINE KETONE NEGATIVE (NEGATIVE); URINE LEUK ESTERASE 2+ (NEGATIVE); URINE NITRITE NEGATIVE (NEGATIVE); URINE PROTEIN 2+ (NEGATIVE); URINE UROBILINOGEN 0.2 mg/dL (0.2-1.0)
[2024-02-09 15:56] LABS: POTASSIUM 4.7 mmol/L (3.5-5.1)
[2024-02-09 15:57] LABS: CALCIUM 8.4 mg/dL (8.5-10.1)
[2024-02-09 15:59] LABS: ALBUMIN 2.2 g/dl (3.4-5.0)
[2024-02-09 16:02] LABS: BILIRUBIN,TOTAL 0.1 mg/dL (0.2-1); CREATININE 4.3 mg/dL (0.55-1.3); TOT PROT 6.2 g/dl (6.4-8.2)
[2024-02-09 16:17] LABS: EPI CELLS 0.9 /uL (0-25.1); HYALINE CASTS 1.5 /uL (0-3.1); URINE RBC 1996.6 /uL (0-23.9); URINE WBC 603.5 /uL (0-25.8)
[2024-02-09 16:18] LABS: URINE BACTERIA 199.2 /uL (0-1359)
[2024-02-09] MEDS ORDERED: CEFTRIAXONE 1 G/50 ML PREMIX 50 ML IVPB ONE (17:50)
[2024-02-09] MEDS: CEFTRIAXONE 1,000 MG in DEXTROSE 5%-WATER - 50 ML IVPB ONE (17:59)
[2024-02-10 00:49] LABS: BASO % 0.4 % (0-2.0); EOS % 2.4 % (0-4.5); HEMATOCRIT 27.6 % (35.4-49); HEMOGLOBIN 8.7 GM/dL (11.7-16.9); LYMPH % 5.7 % (8-40); MCH 25.6 pg (25.7-33.7); MCHC 31.3 g/dl (32.0-35.9); MEAN CELL VOLUME 81.9 fl (80-96); MEAN PLT VOLUME 7.6 fl (7.5-11.1); MONO % 9.1 % (3.8-10.2); NEUT % 82.4 % (42.8-82.8); PLATELET COUNT 437 10^3/uL (134-434); RBC 3.37 M/mm3 (4.00-5.60); RDW 19.1 % (11.9-15.9); WHITE BLOOD COUNT 11.7 K/mm3 (4.0-10.0)
[2024-02-10 05:40] VITALS: BMI 19.1
[2024-02-10] MEDS: CEFTRIAXONE 1 G/50 ML PREMIX 50 ML IVPB SCH (09:43)
[2024-02-10 10:44] LABS: BASO % 0.6 % (0-2.0); EOS % 1.8 % (0-4.5); HEMATOCRIT 26.7 % (35.4-49); HEMOGLOBIN 8.5 GM/dL (11.7-16.9); LYMPH % 5.9 % (8-40); MCH 25.9 pg (25.7-33.7); MCHC 31.8 g/dl (32.0-35.9); MEAN CELL VOLUME 81.4 fl (80-96); MEAN PLT VOLUME 7.8 fl (7.5-11.1); MONO % 6.6 % (3.8-10.2); NEUT % 85.1 % (42.8-82.8); PLATELET COUNT 463 10^3/uL (134-434); RBC 3.28 M/mm3 (4.00-5.60); RDW 19.2 % (11.9-15.9); WHITE BLOOD COUNT 11.4 K/mm3 (4.0-10.0)
[2024-02-10 10:47] LABS: POTASSIUM 4.8 mmol/L (3.5-5.1)
[2024-02-10 10:53] LABS: BLOOD UREA NITROGEN 58.5 mg/dL (7-18)
[2024-02-10 10:54] LABS: ALBUMIN 2.1 g/dl (3.4-5.0); MAGNESIUM 1.9 mg/dL (1.8-2.4)
[2024-02-10 10:57] LABS: CREATININE 4.4 mg/dL (0.55-1.3); PHOSPHOROUS 2.2 mg/dL (2.5-4.9)
[2024-02-10 10:58] LABS: BILIRUBIN,TOTAL 0.3 mg/dL (0.2-1)
[2024-02-10 12:17] VITALS: RESP 18
[2024-02-10 15:56] LABS: BASO % 0.7 % (0-2.0); EOS % 1.9 % (0-4.5); HEMOGLOBIN 7.7 GM/dL (11.7-16.9); LYMPH % 7.6 % (8-40); MCH 26.4 pg (25.7-33.7); MCHC 32.2 g/dl (32.0-35.9); MEAN CELL VOLUME 81.9 fl (80-96); MEAN PLT VOLUME 7.8 fl (7.5-11.1); MONO % 11.2 % (3.8-10.2); NEUT % 78.6 % (42.8-82.8); PLATELET COUNT 408 10^3/uL (134-434); RBC 2.93 M/mm3 (4.00-5.60); RDW 19.6 % (11.9-15.9); WHITE BLOOD COUNT 10.4 K/mm3 (4.0-10.0)
[2024-02-11 06:44] VITALS: TEMP 98.4
[2024-02-11 09:47] LABS: BASO % 0.7 % (0-2.0); EOS % 1.8 % (0-4.5); HEMATOCRIT 24.7 % (35.4-49); HEMOGLOBIN 7.9 GM/dL (11.7-16.9); LYMPH % 6.2 % (8-40); MCHC 31.9 g/dl (32.0-35.9); MEAN CELL VOLUME 81.4 fl (80-96); MEAN PLT VOLUME 7.9 fl (7.5-11.1); MONO % 10.9 % (3.8-10.2); NEUT % 80.4 % (42.8-82.8); PLATELET COUNT 465 10^3/uL (134-434); RBC 3.03 M/mm3 (4.00-5.60); RDW 19.8 % (11.9-15.9); WHITE BLOOD COUNT 9.3 K/mm3 (4.0-10.0)
[2024-02-11 10:18] LABS: POTASSIUM 5.5 mmol/L (3.5-5.1)
[2024-02-11 11:00] LABS: ALBUMIN 1.9 g/dl (3.4-5.0); CALCIUM 8.4 mg/dL (8.5-10.1)
[2024-02-11 11:01] LABS: BLOOD UREA NITROGEN 56.4 mg/dL (7-18)
[2024-02-11 11:05] LABS: TOT PROT 5.5 g/dl (6.4-8.2)
[2024-02-11 11:07] LABS: BILIRUBIN,TOTAL 0.3 mg/dL (0.2-1); CREATININE 4.5 mg/dL (0.55-1.3)
[2024-02-11] MEDS: SODIUM ZIRCONIUM CYCLOSILICATE (LOKELMA) 5 GM PACKET PO ONE (11:55)
[2024-02-11 12:34] VITALS: BP 134/90; PULSE 100
[2024-02-12] MEDS ORDERED: SODIUM ZIRCONIUM CYCLOSILICATE (LOKELMA) 5 GM PACKET PO SCH (10:00)
== END 2024-02-11 14:05 | disposition home or self-care (01) ==
LOC: JER 13:46 → JERBED 18:22 → J5S 02-10 05:02
PROVIDERS: ADMIT Internal Medicine; ATTEND Internal Medicine
PROC: 30233N1 Transfusion of Nonautologous Red Blood Cells into Peripheral Vein, Percutaneous Approach (ICD-10-PCS; principal; 2024-02-09)
PROC: 3E03329 Introduction of Other Anti-infective into Peripheral Vein, Percutaneous Approach (ICD-10-PCS; 2024-02-09)
PROC: 3E033GC Introduction of Other Therapeutic Substance into Peripheral Vein, Percutaneous Approach (ICD-10-PCS; 2024-02-09)
DX: D64.9 Anemia, unspecified (principal); I12.0 Hypertensive chronic kidney disease with stage 5 chronic kidney disease or end stage renal disease; N18.5 Chronic kidney disease, stage 5; F19.10 Other psychoactive substance abuse, uncomplicated; N39.0 Urinary tract infection, site not specified; Z85.51 Personal history of malignant neoplasm of bladder; Z92.21 Personal history of antineoplastic chemotherapy; E87.5 Hyperkalemia; N28.1 Cyst of kidney, acquired
CPT/HCPCS: 36415; 36430; 76775-TC; 80053; 81003; 82306; 82728; 83540; 83550; 83615; 83735; 84100; 85025; 85045; 85610; 85730; 86850; 86900; 86901; 86922; 87086; 87186; 93005; 93010; 96365; 96375; 99285-25; G0378; P9038; P9058